=== PATIENT | male | born 1965 | race Caucasian/White ===

== ENCOUNTER 2016-08-22 16:20 | Emergency (ER) | payer SELFPAY ==
[~2016-08-22] VITALS: Ht 170.2 cm; Wt 67.4 kg
[2016-08-22 16:25] VITALS: BP 172/97
[2016-08-22] MEDS ORDERED: NORCO 5/3251 TABLET PO (18:48)
[2016-08-22] MEDS ORDERED: FLEXERIL10 MG PO (18:48)
[2016-08-22] MEDS ORDERED: MEDROL DOSEPAK4 MG PO (18:48)
== END 2016-08-22 19:21 | disposition home or self-care (01) ==
LOC: EME 16:20
DX: M54.12 Radiculopathy, cervical region (principal); F17.200 Nicotine dependence, unspecified, uncomplicated; Z88.0 Allergy status to penicillin
CPT/HCPCS: 99281; 99283; J7512